=== PATIENT | female | born 1980 | race American Indian/Alaskan Native ===

== ENCOUNTER 2016-03-30 11:16 | Emergency (ER) | payer OTHER ==
[2016-03-30 12:38] LABS: Basophils % (Auto) 0.5 % (0.0-1.8); Eosinophils % (Auto) 0.7 % (0.0-4.3); Hematocrit 39.6 % (30.3-42.9); Hemoglobin 13.2 gm/dl (10.1-14.3); Mean Corpuscular HGB Conc 33 % (30-34); Mean Corpuscular Hemoglobin 31 pg (28-32); Mean Corpuscular Volume 92 fl (79-97); Platelet Count 179 K/mm3 (140-440); Red Cell Distribution Width 13.4 % (13.2-15.2); White Blood Count 7.1 K/mm3 (4.5-11.0)
[2016-03-30 12:57] LABS: Anion Gap 16 mmol/L; BUN/Creatinine Ratio 16.25; Blood Urea Nitrogen 13 mg/dL (7-17); Calcium 9.1 mg/dL (8.4-10.2); Carbon Dioxide 23 mmol/L (22-30); Chloride 99.4 mmol/L (98-107); Glucose 87 mg/dL (65-100); Potassium 4.1 mmol/L (3.6-5.0); Sodium 134 mmol/L (137-145)
[2016-03-30 17:31] VITALS: BP 118/80
--- NOTE | 2016-03-30 20:17 | Emergency Department Report ---
ED Palpitations HPI - General Chief Complaint: Arrhythmia/Palpitations Stated Complaint: HIGH HR Time Seen by Provider: 03/30/16 19:59 Source: patient Mode of arrival: Ambulatory Limitations: No Limitations - History of Present Illness Initial Comments: 35 yo female with no past medical history presents to the hospital complaining of intermittent palpitations for the past 5-6 months. Patient states on average she would have to to 3 episodes in a month time. They occur at rest and even in her sleep. They tend to last for approximately 1 minute this spontaneously resolved. Patient states at times it does seem like the heartbeat is irregular. At palpation onset she has one episodic shot sharp chest pain but denies continued chest pain, chest pressure, nausea, vomiting, diaphoresis, or shortness of breath. Patient does state that she has intermittent lightheadedness and had a syncopal episode in November associated with the palpitations but denies syncopal episode since. Patient has had 2 episodes of palpitations today and came into the ER because she wanted to know why she hasn't had any symptoms for the past 5-6 months. Patient states she does drink tea/caffeine and stop drinking tea approximate 5 days ago. She denies blurred or chest pain, calf tenderness, leg edema, recent travel, history of PE/DVT, or control pill use. - Related Data Allergies Allergy/AdvReac Type Severity Reaction Status Date / Time No Known Allergies Allergy Unverified 03/30/16 11:55 ED Review of Systems ROS: Stated complaint: HIGH HR Other details as noted in HPI Comment: All other systems reviewed and negative Other: Constitutional: No fevers chills Eyes: No eye pain visual changes ENT: No ear pain or throat pain Neck: Denies pain Respiratory: Denies cough wheezing shortness of breath Cardiovascular: As per HPI GI: Denies abdominal pain, nausea, vomiting, diarrhea : Denies dysuria Musculoskeletal: Denies back pain Skin: Denies rash, lesions, erythema Neurologic: Denies headache, numbness, weakness Psychiatric: Denies suicidal ideation, hallucinations ED Physical Exam - General Limitations: No Limitations - Other Other exam information: General: No limitations, patient is alert in no acute distress Head exam: Atraumatic, normocephalic Eyes exam: Normal appearance, pupils equal reactive to light ENT: Moist mucous membrane Neck exam: Normal inspection, full range of motion Respiratory exam: Clear to auscultation bilateral, no wheezes, rales, crackles Cardiovascular: Normal rate and rhythm, normal heart sounds Abdomen: Soft, nondistended, and nontender, with normal bowel sounds, no rebound, or guarding Extremity: Full range of motion normal inspection no deformity, no calf tenderness or edema Back: Normal Inspection, full range of motion, no tenderness Neurologic: Alert, oriented x3, cranial nerves intact, no motor or sensory deficit Psychiatric: normal affect, normal mood Skin: Warm, dry, intact ED Course Vital Signs 03/30/16 03/30/16 12:00 17:25 Temperature 98.7 F 98.1 F Pulse Rate 60 70 Respiratory 16 16 Rate Blood Pressure 112/74 118/80 O2 Sat by Pulse 100 100 Oximetry - Reevaluation(s) Reevaluation #1: 03/30/16 20:18 pt stable in ed ED Medical Decision Making - Lab Data Result diagrams: 03/30/16 12:29 03/30/16 12:29 Lab Results 03/30/16 03/30/16 03/30/16 Range/Units 12:29 12:29 14:49 WBC 7.1 (4.5-11.0) K/mm3 RBC 4.30 (3.65-5.03) M/mm3 Hgb 13.2 (10.1-14.3) gm/dl Hct 39.6 (30.3-42.9) % MCV 92 (79-97) fl MCH 31 (28-32) pg MCHC 33 (30-34) % RDW 13.4 (13.2-15.2) % Plt Count 179 (140-440) K/mm3 Lymph % (Auto) 34.2 (13.4-35.0) % [place] % (Auto) 5.6 (0.0-7.3) % Eos % (Auto) 0.7 (0.0-4.3) % Baso % (Auto) 0.5 (0.0-1.8) % Lymph # 2.4 (1.2-5.4) K/mm3 [place] # 0.4 (0.0-0.8) K/mm3 Eos # 0.0 (0.0-0.4) K/mm3 Baso # 0.0 (0.0-0.1) K/mm3 Seg Neutrophils % 59.0 (40.0-70.0) % Seg Neutrophils # 4.2 (1.8-7.7) K/mm3 Sodium 134 L (137-145) mmol/L Potassium 4.1 (3.6-5.0) mmol/L Chloride 99.4 (98-107) mmol/L Carbon Dioxide 23 (22-30) mmol/L Anion Gap 16 mmol/L BUN 13 (7-17) mg/dL Creatinine 0.8 (0.7-1.2) mg/dL Estimated GFR > 60 ml/min BUN/Creatinine Ratio 16.25 % Glucose 87 (65-100) mg/dL Calcium 9.1 (8.4-10.2) mg/dL Troponin T < 0.010 < 0.010 (0.00-0.029) ng/mL 03/30/16 Range/Units 18:29 WBC (4.5-11.0) K/mm3 RBC (3.65-5.03) M/mm3 Hgb (10.1-14.3) gm/dl Hct (30.3-42.9) % MCV (79-97) fl MCH (28-32) pg MCHC (30-34) % RDW (13.2-15.2) % Plt Count (140-440) K/mm3 Lymph % (Auto) (13.4-35.0) % [place] % (Auto) (0.0-7.3) % Eos % (Auto) (0.0-4.3) % Baso % (Auto) (0.0-1.8) % Lymph # (1.2-5.4) K/mm3 [place] # (0.0-0.8) K/mm3 Eos # (0.0-0.4) K/mm3 Baso # (0.0-0.1) K/mm3 Seg Neutrophils % (40.0-70.0) % Seg Neutrophils # (1.8-7.7) K/mm3 Sodium (137-145) mmol/L Potassium (3.6-5.0) mmol/L Chloride (98-107) mmol/L Carbon Dioxide (22-30) mmol/L Anion Gap mmol/L BUN (7-17) mg/dL Creatinine (0.7-1.2) mg/dL Estimated GFR ml/min BUN/Creatinine Ratio % Glucose (65-100) mg/dL Calcium (8.4-10.2) mg/dL Troponin T < 0.010 (0.00-0.029) ng/mL - EKG Data -: EKG Interpreted by Me (nsr rate 61) - Medical Decision Making EKG is normal sinus a heart rate remains in the 60s in the ED. No signs of arrhythmia or WPW syndrome. ED workup unremarkable. Symptoms ongoing for approximate 6 months and not currently present. I educated patient on how to count her pulse so that she may record her heart rate during these episodes. I encouraged patient to follow up with primary care doctor and studio technician provided for further workup and evaluation and possible Holter monitor evaluation - Differential Diagnosis exotic, WPW, arrhythmia, electrolyte abnormality Critical Care Time: No Critical care attestation.: If time is entered above; I have spent that time in minutes in the direct care of this critically ill patient, excluding procedure time. ED Disposition Clinical Impression: Palpitations Disposition: DISCHARGED TO HOME OR SELFCARE Is pt being admited?: No Does the pt Need Aspirin: No Condition: Stable Instructions: Palpitations (ED) Additional Instructions: Stop all caffeine use. Continue to monitor your pulse rate during episodes as instructed in the emergency department. It is very important to follow with a primary care doctor and/or studio technician for further evaluation including possible Holter monitor. Return if symptoms worsen Referrals: MORENA HERRERA MD [Staff Physician] - 3-5 Days RUCHI HUNTER MD [Staff Physician] - 3-5 Days Time of Disposition: 20:22
== END 2016-03-30 20:30 | disposition home or self-care (01) ==
LOC: ED 11:16
DX: R00.2 Palpitations (principal)
CPT/HCPCS: 36415; 80048; 84484; 85025; 93005; 93010; 99284